=== PATIENT | female | born 1960 | race Caucasian/White ===

== ENCOUNTER → 2018-11-19 | Outpatient (CLI) | payer BC ==
--- NOTE | 2018-12-11 14:39 | RADIOLOGY IMAGING REPORT ---
[place] [facility] [place]IENT NAME: EVERETT DALY : [id number] MR: [id number] V: [id number] EXAM DATE: [id number] ORDERING PHYSICIAN: HETAL YANEZ TECHNOLOGIST: Dot Smalls PROCEDURE:BILATERAL DIGITAL SCREENING MAMMOGRAM WITH CAD ASSISTED INTERPRETATION & 3D TOMOSYNTHESIS COMPARISON:None. The previous outside mammograms have been requested twice & were never received. If the prior mammograms do become available an addendum can be dictated at that time. INDICATIONS:screening FINDINGS: The breasts are heterogeneously dense which can obscure small masses. There is a nodular density in the upper outer quadrant of the Left breast for which Left breast Ultrasound is recommended. Since there are no prior mammograms available for comparison a 6 month follow up bilateral mammogram is also recommended to document stability of the heterogeneous parenchymal pattern. There is a biopsy clip in the medial inferior portion of the Right breast in the middle/posterior third. DIAGNOSTIC CATEGORY 0--INCOMPLETE: NEED ADDITIONAL IMAGING EVALUATION. RECOMMENDATIONS: ULTRASOUND: LEFT BREAST. SIX MONTH FOLLOW-UP DIAGNOSTIC MAMMOGRAM: BILATERAL BREASTS. IMPRESSION: BIRADS 0: Incomplete, need additional imaging evaluation. Left breast Ultrasound recommended as described. 6 month follow up bilateral mammogram also recommended as described above. Dictated by: Karolina Baird M.D. on 12/11/2018 at 11:08 Transcribed by: ALLI on 12/11/2018 at 11:39 Approved by: Karolina Baird M.D. on 12/11/2018 at 14:38 [facility]
== END ==
LOC: MAMO 10:51
PROVIDERS: ATTEND Nurse Practitioner Family
DX: R92.8 Other abnormal and inconclusive findings on diagnostic imaging of breast (principal)
CPT/HCPCS: 77063; 77067

== ENCOUNTER 2019-01-14 00:58 | Day surgery (SDC) | payer BC ==
[~2019-01-14] VITALS: Ht 170.2 cm; Wt 85.7 kg
[~2019-01-14 00:58] MED LIST: AMIT-104 PO; ASPI-1471 PO; ATOR40TA24 PO; BUPR-124 PO; CHOL10005 PO; CITA-145 PO; FERR325T24 PO; L.AC1CAP6 PO; METF750T25 PO; METO25TA23 PO; METO25TA93 PO; MULT-1176 PO
[2019-01-14] MEDS ORDERED: PROPOFOL EMUL(*) 10MG/ML 20 ML 60 ML ONE (08:24)
[2019-01-14] MEDS ORDERED: LIDOCAINE MPF 1% 5 ML VIAL ONE (08:24)
[2019-01-14 09:27] VITALS: BP 127/91
[2019-01-14] MEDS ORDERED: LIDOCAINE/SOD BICARB 8.4% SYR ID ONE (09:30)
[2019-01-14] MEDS ORDERED: NORMOSOL R SOLN(*) 1000 ML BAG 1,000 ML IV PRN (10:00)
[2019-01-14] MEDS ORDERED: PROPOFOL EMUL(*) 10MG/ML 20 ML 40 ML ONE (10:43)
[2019-01-14 11:20] VITALS: BP 91/67
[2019-01-14 11:30] VITALS: BP 97/75
[2019-01-14 12:06] VITALS: BP 111/75
[2019-01-14 12:28] VITALS: BP 98/78
[2019-01-14 12:29] VITALS: BP 94/69
== END 2019-01-14 12:50 | disposition home or self-care (01) ==
LOC: OR 00:58
PROVIDERS: ATTEND Internal Medicine Gastroenterology
DX: K63.5 Polyp of colon (principal); K57.30 Diverticulosis of large intestine without perforation or abscess without bleeding; K64.8 Other hemorrhoids; E11.9 Type 2 diabetes mellitus without complications
CPT/HCPCS: 00813; 36416; 43239; 43249; 45380; 82948; 88305; 88313; 88342; C1726; J2001; J2704

== ENCOUNTER 2019-02-05 11:49 | Outpatient (RCR) | payer BC ==
--- NOTE | 2019-01-09 01:31 | ONCOLOGY CONSULTATION ---
EVENT DATE: January 08, 2019 REFERRING PHYSICIAN CATHY Troncoso REASON FOR CONSULTATION Evaluation and management of iron-deficiency anemia, most probably due to her gastric bypass surgery with iron malabsorption. HEMATOLOGY HISTORY Patient is a 58-year-old female who had gastric bypass surgery in the past, and the patient was found to have iron deficiency on multiple occasions lately, despite the fact patient was put on iron studies. Patient also is complaining of GI symptoms from her iron pills, and that is why she was not even compliant with the treatment. She had iron studies done on November 11, 2018, which showed TIBC of 445, serum iron 43, iron saturation 10%, and ferritin was 7. Prior to that, she had iron studies in May 2018 which showed ferritin of 11, TIBC of 458, and iron saturation 11%. Patient has alternating diarrhea and constipation, and she is scheduled to have GI workup on 14 Jan 2019 by her steam table worker. PAST MEDICAL HISTORY 1. Type 2 diabetes. 2. Diabetic neuropathy of the feet. 3. Depression. 4. Coronary artery disease, status post cardiac catheterization. 5. Hypercholesterolemia. 6. Hypertension. PAST SURGICAL HISTORY 1. Hysterectomy, but the ovaries are intact. 2. Gastric bypass surgery. 3. Spiral fractures of the tibia and fracture of the fibula, status post surgical correction. 4. Bilateral carpal tunnel release surgery. FAMILY HISTORY Mother had cervical cancer in her 40s. Half brother had parotid gland cancer. SOCIAL HISTORY Patient is , has one child. 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 Patient has one to two glasses of wine per week and denies any abuse of tobacco or illicit drugs. CURRENT MEDICATIONS 1. Metformin 750 mg twice daily. 2. Amitriptyline 10 mg once daily. 3. Citalopram 40 mg once daily. 4. Bupropion XL 150 mg once daily. 5. Metoprolol 25 mg once daily. 6. Atorvastatin 40 mg once daily. 7. Multivitamin once daily. 8. Vitamin D 2000 units daily. 9. Ferrous fumarate 325 mg a.m. and p.m. 10. Aspirin 81 mg daily. 11. Probiotic. ALLERGIES BLACK COHOSH TEA, which caused full body rash. REVIEW OF SYSTEMS CONSTITUTIONAL: No appetite or weight change. No fever, chills, or sweating. No recent infection. HEENT: Ears: No tinnitus or hearing problem. Nose: No nasal discharge or epistaxis. Throat: No sore throat or mouth ulcers. Eyes: No diplopia or visual changes. RESPIRATORY: No shortness of breath. No cough, expectoration, or hemoptysis. CARDIOVASCULAR: No chest pain, orthopnea, or paroxysmal nocturnal dyspnea (PND). No edema. No palpitations. GASTROINTESTINAL: The patient has alternating diarrhea and constipation. GENITOURINARY: No hematuria or dysuria. MUSCULOSKELETAL: No pain in the muscles, joints, or bones. NEUROLOGIC: She has neuropathy in her feet from her diabetes. HEMATOLOGIC/LYMPHATIC: No bleeding or easy bruising. No weakness or fatigue. No enlarged lymph nodes. SKIN: No skin rash or lumps. PSYCHIATRIC: No anxiety or depression. PHYSICAL EXAMINATION GENERAL: Looks stable. Well developed, well nourished, and in no acute distress. VITAL SIGNS: Blood pressure 137/95, pulse 88 per minute, respirations 16 per minute, temperature 97, and pulse ox 92% on room air. HEENT: Head: Atraumatic. No sinus tenderness to palpation. Eyes: No icterus or conjunctivitis. Mouth and Throat: No oral thrush or mucositis. NECK: Supple. No cervical or supraclavicular lymphadenopathy. LUNGS: Clear to auscultation and percussion bilaterally. HEART: Regular rate and rhythm. No gallops, murmurs, clicks, or rubs. ABDOMEN: Soft and lax. No tenderness. No hepatosplenomegaly. No masses. EXTREMITIES: No cyanosis, clubbing, or edema. LYMPHATICS: No peripheral lymphadenopathy. NEUROLOGIC: Conscious, alert, and oriented times three. No focal motor or sensory deficits. PSYCHIATRIC: Mood and affect appear normal. SKIN: No skin rash, bruise, or purpuric eruption. ASSESSMENT Iron-deficiency anemia, most probably related to her iron malabsorption from gastric bypass surgery. Patient had gastrointestinal side effect from her iron pills, and at the same time she did not get benefit because of the malabsorption of iron by her gastric bypass surgery. Given this information, I am planning to treat her with intravenous iron supplementation. I am planning to check her CBC and iron studies with ferritin prior to starting her iron intravenously. I am planning to treat her with Injectafer 750 mg intravenous infusion weekly for two weeks. I will see her in three months after that with CBC, iron studies with ferritin. If the patient will drop iron, we will treat her with Injectafer in the future, and I advised her to stop iron pills because it is not working, and at the same time it gives her gastrointestinal side effects. The patient is agreeable with the plan of management. PLAN 1. Injectafer 750 mg intravenous infusion weekly for two weeks. 2. CBC, iron studies with ferritin to be checked prior to her Injectafer infusion. 3. Patient to return in three months with CBC, iron studies with ferritin. 4. Patient to contact us for any new concerns or complaints. LATOSHAD
[2019-01-29 14:06] VITALS: BP 125/83
[2019-01-29 14:33] LABS: PLATELET COUNT, AUTOMATED 309 K/uL (150-450)
[2019-01-29] MEDS: LIDOCAINE/SOD BICARB 8.4% SYR ID PRN (15:12)
[2019-01-29] MEDS: NS(*) 0.9% 100 ML BAG 100 ML IVPB PRN (15:12)
[2019-01-29 15:13] VITALS: BP 116/79
[~2019-02-05 11:49] MED LIST changes: +DEXTROSE 5%(*) 100 ML BAG 100 ML IVPB PRN; +FERRIC CARBOXY 750 MG SDV 750 MG in NS(*) 0.9% 250 ML BAG 250 ML IVPB ONE
[2019-02-05 12:03] VITALS: BP 136/76
[2019-02-05] MEDS ORDERED: FERRIC CARBOXY 750 MG SDV 750 MG in NS(*) 0.9% 250 ML BAG 250 ML IVPB ONE (12:05)
[2019-02-05] MEDS: LIDOCAINE/SOD BICARB 8.4% SYR ID PRN (12:33)
[2019-02-05] MEDS: NS(*) 0.9% 100 ML BAG 100 ML IVPB PRN (12:33)
[2019-02-05 13:05] VITALS: BP 119/75
[2019-02-14] MEDS ORDERED: CEPH500T7 PO (13:57)
[2019-02-14] MEDS ORDERED: PRED20TA6 PO (13:57)
== END 2019-03-03 13:27 | disposition home or self-care (01) ==
LOC: SPU 11:49
PROVIDERS: ATTEND Internal Medicine Hematology
DX: D50.9 Iron deficiency anemia, unspecified (principal); Z98.84 Bariatric surgery status; E11.9 Type 2 diabetes mellitus without complications; Z79.899 Other long term (current) drug therapy
CPT/HCPCS: 82728; 83540; 83550; 85025; 96365; 99202; J1439; J7050; 82040; 82247; 82310; 82374; 82435; 82565; 82947; 84075; 84132; 84155; 84295; 84450; 84460; 84520

== ENCOUNTER 2019-02-14 12:21 | Emergency (ER) | payer BC ==
[~2019-02-14 12:21] MED LIST changes: -DEXTROSE 5%(*) 100 ML BAG 100 ML IVPB PRN; -FERRIC CARBOXY 750 MG SDV 750 MG in NS(*) 0.9% 250 ML BAG 250 ML IVPB ONE
[2019-02-14 12:27] VITALS: BP 133/95
--- NOTE | 2019-02-14 12:28 | ER Report ---
History and Physical Time Seen By MD: 12:26 Hx. of Stated Complaint: lac to toe HPI/ROS CHIEF COMPLAINT: Left foot laceration HISTORY OF PRESENT ILLNESS: 59-year-old female patient presents to emergency room today with laceration to the left foot. Patient states that she was standing up when she passed out. Patient states she does have a history of orthostatic hypotension. She states that she did not stand up slowly she should have. She states that she fell she must of hit her foot on something and has a laceration to the base of the fifth toe on the plantar side. Patient states that she does have diabetes, she states she does have some mild neuropathy and denies having any pain. She states she is not taking any medication for this. I did apply some pressure were able to get the bleeding stopped prior to coming to emergency room. Patient denies having any foot pain. She states she does feels that she twisted her ankle and does have some ankle pain. Patient is up-to-date on her tetanus. REVIEW OF SYSTEMS: Respiratory: No cough, no dyspnea. Cardiovascular: No chest pain, no palpitations. Gastrointestinal: No vomiting, no abdominal pain. Musculoskeletal: As noted above Allergies: Coded Allergies: black cohosh (Verified Allergy, Intermediate, 01/06/19) full body rash Home Meds Active Scripts Cephalexin 500 Mg Tab (KEFLEX 500 MG TAB) 500 Mg Tablet, 500 MG PO Q6H, #28 TAB Prov:HALI CARMEN [facility] 02/14/19 Prednisone (PREDNISONE) 20 Mg Tablet, 40 MG PO DAILY, #8 TAB Prov:HALI CARMEN [facility] 02/14/19 Reported Medications Metoprolol Succinate (METOPROLOL SUCCINATE) 25 Mg Tab.er.24h, 1 TAB PO QDAY, TAB 01/06/19 L.acidoph & Paracasei,B.lactis (Probiotic) 1 Each Capsule, CAP PO DAILY 01/06/19 Aspirin (ASPIR 81) 81 Mg Tablet.dr, 81 MG PO QDAY, TAB 01/06/19 Cholecalciferol (Vitamin D3) (VITAMIN D3) 1,000 Unit Tablet, 2000 UNIT PO DAILY, TAB 01/06/19 Multivits,Ca,Minerals/Iron/Fa (WOMEN'S DAILY CAPLET) 1 Each Tablet, 1 EACH PO DAILY 01/06/19 Atorvastatin Calcium (LIPITOR) 40 Mg Tablet, 1 TAB PO HS, TAB 01/06/19 Bupropion Hcl (BUPROPION XL) 150 Mg Tab.er.24h, 150 MG PO QDAY, #10 TAB 01/06/19 Citalopram Hydrobromide (CITALOPRAM HBR) 20 Mg Tablet, 40 MG PO QDAY, #5 TAB 01/06/19 Amitriptyline Hcl (AMITRIPTYLINE HCL) 10 Mg Tablet, 10 MG PO QHS, #5 TAB 01/06/19 Metformin Hcl (METFORMIN HCL ER) 750 Mg Tab.er.24h, 1 TAB PO BID, TAB 01/06/19 Discontinued Reported Medications Ferrous Sulfate (IRON) 325 Mg Tablet, 325 MG PO DAILY 01/06/19 Past Medical/Surgical History Patient has a past medical history of migraines, CAD, hypertension, hyperlipidemia, carcinoid tumor of colon, right tib-fib fracture, diabetes, anemia, occasional marijuana use, alcohol use, depression. Patient has a surgical history of a heart catheter, a Tara-en-Y gastric bypass, hysterectomy, repair of bilateral astigmatism. Reviewed Nurses Notes: Yes Hx Smoking: No Smoking Status: Never Smoker Exposure to Second Hand Smoke?: Yes (as a child) Hx Alcohol Use: Yes Constitutional Vital Sign - Last 24 Hours 02/14/19 02/14/19 02/14/19 12:27 12:30 13:30 Temp 98.2 Pulse 89 93 84 Resp 20 B/P (MAP) 133/95 Pulse Ox 96 96 97 O2 Delivery Room Air Physical Exam General Appearance: The patient is alert, has no immediate need for airway protection and no current signs of toxicity. Respiratory: Chest is non tender, lungs are clear to auscultation. Cardiac: regular rate and rhythm Gastrointestinal: Abdomen is soft and non tender, no masses, bowel sounds normal. Musculoskeletal: Neck: Neck is supple and non tender. Extremities have full range of motion and are non tender. Skin: No rashes or lesions. Patient has a 1 cm laceration to the plantar aspect of the left fifth toe. DIFFERENTIAL DIAGNOSIS: After history and physical exam differential diagnosis w as considered for ankle sprain, fracture, laceration. Medical Decision Making EKG/Imaging Imaging EXAMINATION: Left ankle radiographs 2 views HISTORY: Laceration, ankle pain. COMPARISON: Left foot radiographs from 02/14/2019. FINDINGS: AP and oblique views of the left ankle are obtained. Bones: There is no acute fracture or dislocation of the ankle. 5th proximal phalanx toe fracture is better visualized on the dedicated foot radiographs. Joint spaces: Negative. Hardware: None. Alignment: Normal. Soft tissues: Negative. IMPRESSION: No acute left ankle fracture. Report Dictated By: Gladys Kurtz MD at 02/14/2019 1:28 PM Report E-Signed By: Gladys Kurtz MD at 02/14/2019 1:34 PM FOOT 3 VIEW LEFT HISTORY: laceration, ankle pain Three-view examination of the left foot. FINDINGS: Study demonstrates transverse fracture through the base of the proximal phalanx of the fifth toe. Fracture does not extend into the joint space. Very minimal 1.4 mm cortical offset of the shaft of the proximal phalanx relative the base laterally. No additional fracture seen. Plantar spurring and enthesopathy changes noted. IMPRESSION: 1. Fracture of the base of the proximal phalanx of the fifth toe as described. Report Dictated By: Galdino Knott MD at 02/14/2019 1:24 PM Report E-Signed By: Galdino Knott MD at 02/14/2019 1:27 PM ED Course/Re-evaluation ED Course Patient was admitted to exam room, history and physical were obtained. Differential diagnoses were considered. On examination lungs are clear, heart is regular, abdomen soft nontender. Patient does have a 1 cm laceration to the plantar aspect of the left fifth toe. Patient has no tenderness to palpation. Patient is complaining some discomfort to the left ankle and so we decided that time to do an x-ray of the ankle and foot. The ankle was negative, however the foot did show a fracture of the proximal phalange of the fifth toe. I discussed the case with Dr. Charlie sebastian, orthopedist. He he recommended placing the patient in a walking boot, as long as a short. Otherwise a postop she would be fine, repairing the wound and starting her on antibiotics. Patient was given 1 g of Ancef IV. The wound was anesthetized, cleaned and repaired as described below. We will go ahead and discharge patient home. She was placed in a walking boot was able to ambulate without any difficulties. She is follow-up with Dr. Dennis. Patient is to take Tylenol or ibuprofen as if pain. She verbalized understanding and agreement with plan. Procedure: Laceration repair. Verbal consent was obtained from the patient. The 1 cm laceration on the plantar aspect of the left fifth toe was anesthetized in the usual fashion. The wound was scrubbed, draped and explored to its base with a gloved finger. There were no deep structures involved. No tendon injury was identified. The wound was repaired with 5 simple interrupted sutures using 5-0 Prolene material. The wound repair was simple. The procedure was performed by myself. Decision to Disposition Date: Feb 14, 2019 Decision to Disposition Time: 13:52 Depart Departure Latest Vital Signs Vital Signs Date Time Temp Pulse Resp B/P (MAP) Pulse Ox O2 Delivery O2 Flow Rate FiO2 02/14/19 13:30 84 97 02/14/19 12:27 98.2 20 133/95 Room Air Impression: Primary Impression: Fracture of proximal phalanx of toe Additional Impressions: Laceration of toe Allergic rash present on examination Condition: Improved Disposition: HOME OR SELF-CARE Referrals: HETAL YANEZ APRN (PCP) TONIE DENNIS MD New Scripts Cephalexin 500 Mg Tab (KEFLEX 500 MG TAB) 500 Mg Tablet 500 MG PO Q6H, #28 TAB Prov: HALI CARMEN 02/14/19 Prednisone (PREDNISONE) 20 Mg Tablet 40 MG PO DAILY, #8 TAB Prov: HALI CARMEN 02/14/19 Patient Instructions: Toe Fracture (ED) Additional Instructions: Keep wound dry for 48 hours. Follow up with Dr. Dennis in the next week. Monitor for signs of infection; redness, swelling, heat, discharge, increasing pain or red streaking. Take Tylenol or Ibuprofen as needed for pain. Return to the ER with any concerns. You may change dressing as needed. Limit activity by pain. Ice the toe 2-3 times a day for 20-30 minutes. Follow up with [facility], call tomorrow to make an appointment. Return to the ER with uncontrollable pain or numbness to the toe. Problem Qualifiers Additional Impressions: Laceration of toe Encounter type: initial encounter Toe: lesser toe Damage to nail status: without damage Foreign body presence: without foreign body Laterality: left Qualified Codes: S91.115A - Laceration without foreign body of left lesser toe(s) without damage to nail, initial encounter HALI CARMEN Feb 14, 2019 12:28
[2019-02-14] MEDS ORDERED: predniSONE 20 MG TAB PO ONE (12:50)
[2019-02-14] MEDS ORDERED: ceFAZolin 1 GM VIAL IVP ONE (13:15)
--- NOTE | 2019-02-14 13:33 | RADIOLOGY IMAGING REPORT ---
FACILITY: [facility] PATIENT NAME: Falguni Mccray : 1960 MR: [id number] V: [id number] EXAM DATE: ORDERING PHYSICIAN: HALI CARMEN TECHNOLOGIST: Location: [facility] - [place] Patient: Falguni Mccray : 1960 Visit/Account:[id number] Date of Sevice: 02/14/2019 FOOT 3 VIEW LEFT HISTORY: laceration, ankle pain Three-view examination of the left foot. FINDINGS: Study demonstrates transverse fracture through the base of the proximal phalanx of the fifth toe. Fr acture does not extend into the joint space. Very minimal 1.4 mm cortical offset of the shaft of the proximal phalanx relative the base laterally. No additional fracture seen. Plantar spurring and en thesopathy changes noted. IMPRESSION: 1. Fracture of the base of the proximal phalanx of the fifth toe as described. Report Dictated By: Galdino Knott MD at 02/14/2019 1:24 PM Report E-Signed By: Galdino Knott MD at 02/14/2019 1:27 PM WSN:[id number]
--- NOTE | 2019-02-14 13:39 | RADIOLOGY IMAGING REPORT ---
FACILITY: [facility] - [place] PATIENT NAME: Falguni Mccray : 1960 MR: [id number] V: [id number] EXAM DATE: ORDERING PHYSICIAN: HALI CARMEN TECHNOLOGIST: Location: [facility] Patient: Falguni Mccray : 1960 Visit/Account:[id number] Date of Sevice: 02/14/2019 EXAMINATION: Left ankle radiographs 2 views HISTORY: Laceration, ankle pain. COMPARISON: Left foot radiographs from 02/14/2019. FINDINGS: AP and oblique views of the left ankle are obtained. Bones: There is no acute fracture or dislocation of the ankle. 5th proximal phalanx toe fracture is better visualized on the dedicated foot radiographs. Joint spaces: Negative. Hardware: None. Alignment: Normal. Soft tissues: Negative. IMPRESSION: No acute left ankle fracture. Report Dictated By: Gladys Kurtz MD at 02/14/2019 1:28 PM Report E-Signed By: Gladys Kurtz MD at 02/14/2019 1:34 PM [id number]
[2019-02-14] MEDS ORDERED: CEPH500T7 PO (13:57)
[2019-02-14] MEDS ORDERED: PRED20TA6 PO (13:57)
== END 2019-02-14 14:21 | disposition home or self-care (01) ==
LOC: ER 12:32
DX: S91.115A Laceration without foreign body of left lesser toe(s) without damage to nail, initial encounter (principal); R21 Rash and other nonspecific skin eruption; S92.512A Displaced fracture of proximal phalanx of left lesser toe(s), initial encounter for closed fracture
CPT/HCPCS: 12001; 73610; 73630; 96374; 99284; J0690; J7512